=== PATIENT | male | born 1965 | race Caucasian/White ===

== ENCOUNTER 2022-11-17 06:13 | Outpatient (CLI) | payer OTHER ==
[~2022-11-17] VITALS: Ht 175.3 cm; Wt 83.0 kg
[2022-11-17] MEDS ORDERED: OMEP20CA18 PO (15:05)
[2022-11-17] MEDS ORDERED: NF-VITD400 PO (15:05)
[2022-11-17] MEDS ORDERED: ATOR40TA70 PO (15:05)
== END 2022-11-17 15:22 | disposition home or self-care (01) ==
LOC: PREOP 06:13
PROVIDERS: ATTEND Surgery
DX: Z01.818 Encounter for other preprocedural examination (principal); K40.90 Unilateral inguinal hernia, without obstruction or gangrene, not specified as recurrent

== ENCOUNTER 2022-11-24 07:38 | Day surgery (SDC) | payer OTHER ==
[2022-11-24] VITALS (11 sets, daily range): BP systolic 140–167; BP diastolic 74–94
[~2022-11-24] VITALS: Ht 175.3 cm; Wt 83.0 kg
[~2022-11-24 07:38] MED LIST: ATOR40TA70 PO; NF-VITD400 PO; OMEP20CA18 PO
[2022-11-24] MEDS: LACTATED RINGERS 1,000 ML IV PRN ×2 (08:15→09:17)
[2022-11-24] MEDS ORDERED: BUP/EPI 0.5% 1:200,000 (SENSORCAINE) 30 ML VIAL INJ ONE (08:30)
[2022-11-24] MEDS ORDERED: ceFAZolin INJECTION 2,000 MG in NS (IVPB) 50 ML IV ONE ×2 (11:15→12:30)
--- NOTE | 2022-11-24 11:43 | Progress Note-Post Operative ---
Post-Operative Progess Note Surgeon (s)/Aircraft Load Controller (s) Surgeon ALICIA JONES DO Aircraft Load Controller: Javier Pre-Operative Diagnosis RIGHT INGUINAL HERNIA Post-Operative Diagnosis Incarcerated right inguinal hernia Right cord lipoma incarcerated right femoral hernia Procedure & Operative Findings Date of Procedure 11/24/22 Procedure Performed/Findings 1) Laparoscopic Right inguinal herniarraphy with mesh placement - robotic 2) Excision of cord lipoma 3) Laparoscopic right femoral herniarraphy with mesh placement - robotic After informed consent was obtained, the patient was brought to the operating room and placed on the operating table in a supine position. He was sterilely prepped and draped in a normal fashion. Local lidocaine was used to infiltrate the skin above the umbilicus. I made an incision with #11 blade, carried down to the skin into subcutaneous tissue and then deepened down the subcutaneous tissue with Bovie electrocautery down to the fascia. Fascia was incised with Bovie electrocautery and bluntly entered the abdomen, swept a finger around, placed 0 Vicryl [id number] suture and placed limited trocar port under direct visualization. Created pneumoperitoneum, able to visualize the hernia and took a picture of this and then placed two 8 mm ports about 10 cm on either side of the midline port using a local lidocaine, 11 blade for stab incision and then advanced the robotic port under direct visualization. Once this was in, I then placed the patient in Trendelenburg and then placed the working instruments, the fenestrated bipolar and the scissors. Looked on the left side and did not see any signs of inguinal hernia. I could see a large indirect hernia defect on the right side. Next, I came across the peritoneum approximately 8 cm away from the hernia defect, going across laterally starting lateral about 17cm and cutting toward the median umbilical ligament. I then carefully dissected the visceral peritoneum away and down and then in the midline, went through the parietal side and dissected down to the pubic tubercle, dissecting this down carefully pushing the peritoneum away, I was able to then visualize the pubic tubercle and Vinny's ligament. I went 2 cm posterior and at this point, we then had a critical view of the dissection, able to dissect 2 cm across the midline to the right side, 2 cm posterior to the Vinny's ligament, able to then parietalize the vas deferens and spermatic vessels right at the groove between Vinny's and iliac vein and able to dissect, make sure there was no peritoneum between those two, able to see the indirect hernia space, took a picture of this, looked at the femoral space and found an incarcerated hernia. Started carefully removing the hernia contents and able to completely reduce. Then, I carefully teased out the hernia sac and could visualize the indirect hernia space. Next I looked on the cord and cord structures. There was a large cord lipoma that I was able to reduce and cut off. This was then removed throught the port to get it out of the peritoneal space. I could clearly see the inguinal canal and the indirect space. Next I carried the posterior lateral dissection all the way out and then placed a 10 x 16 Mid[place]ieght Bard 3DMax mesh. It laid in nicely, covered the hernia defect and the rest of the area. It was above the peritoneum, sutured it at the pubic tubercle with a 3-0 Vicryl suture and tied this off. I then tied another suture out laterally to hold the mesh down. This appeared to lay in very nicely. I then brought down the pneumoperitoneum to about 8 mmHg and then started closing the peritoneum. Started laterally and used a 2-0 V-lock barbed suture to start a running stitch to close the peritoneum. This was closed nicely, took a picture of the closure at this point, then removed both needles had switched to a suture lokie driver from the scissors. The patient was then placed back supine, removed all ports under direct visualization, allowed pneumoperitoneum to escape and then closed the supraumbilical incision, closing the fascia with 0 Vicryl suture previously placed. Copiously irrigated all incisions and then closed the two small 8 mm incisions with two interrupted 4-0 undyed Monocryl subcuticular stitches and closed the supraumbilical incision with three interrupted undyed Monocryl subcuticular stitch. Area was cleaned and dried. Dermabond was placed. The patient tolerated the procedure. The sponge, instrument and needle counts were correct at the end of the case. Dr. Herrera assisted during this surgery by making incisions, closing incisions, helping to identify anatomy and passing/retrieving suture and needles. Anesthesia Type GET Estimated Blood Loss Estimated blood loss (mL): scant Specimens/Packing Specimens Removed cord lipoma ALICIA JONES DO November 24, 2022 11:43
--- NOTE | 2022-11-24 11:45 | Discharge Inst-Surgical ---
Discharge Inst-Surgical Depart Medication/Instructions New, Converted or Re-Newed RX: Transmitted to Pharmacy Patient Instructions Follow up Appt: Make appointment for 1 week. [phone] Instructions: No lifting greater than 20 pounds. No strenuous activity. May shower in 24 hours, no tub bath or soaking. Use incentive spirometer at home as directed. No Smoking Skin/Wound Care: May remove bandages in am. You need to leave the Dermabond on incision it will fall off on it's own. Symptoms to Report: Appetite Changes, Extremity Discoloration, Numbness/Tingling, Swelling Increased, Bleeding Excessive, Eyesight Changes, Pain Increased, Urine Color Change, Constipation(Persistent), Fever over 101 degree F, Pain/Pressure in chest, Urinating Difficulty, Cough Up/Vomit Blood, Heart Beat Irreg/Pounding, Pain/Pressure in jaw, Cramps in feet or legs, Lightheadedness, Pain/Pressure in shoulder, Diarrhea(Persistent), Memory Changes Suddenly, Questions/Concerns, Weight gain consecutive days, Dizziness/Fainting, Nausea/Vomiting, Shortness of Breath, Weight gain over 2 pounds If questions or concerns contact your physician Or seek help at emergency department. Activity Activity as Tolerated: Yes Activity Instructions: Avoid Stress to Incision Driving Instructions: No Driving/Refer to Dr. Olsen Discharge Diet: No Restrictions Diet After 24 Hours: Clear Liquid if Nauseous If Any Problems/Questions/Issu: Contact Your Physician, Go to Emergency Room Skin/Wound Care Infection Signs and Symptoms: Increased Redness, Foul Odor of Wound, Increased Drainage, Skin Itchy or Has a Rash, Increased Swelling, Temperature Above 101 F Wound Care Comment: heating pad to shoulder or neck for pain tonight Bathing Instructions: Shower Stitches/[place]/Dermabond Dis: Dermabond Ice Pack: Ice On and Off Site ALICIA JONES DO November 24, 2022 11:45
--- NOTE | 2022-11-24 13:10 | Anesthesia-General Post-Op ---
General Patient Condition Mental Status/LOC: Same as Preop Cardiovascular: Satisfactory Nausea/Vomiting: Absent Respiratory: Satisfactory Pain: Controlled Complications: Absent Post Op Complications Complications None Follow Up Care/Instructions Patient Instructions None needed. Anesthesia/Patient Condition Patient Condition Patient is doing well, no complaints, stable vital signs, no apparent adverse anesthesia problems. No complications reported per nursing. D/C home per [facility] [place] Criteria: Yes LOR ROGERS CRNA November 24, 2022 13:10
--- NOTE | 2022-11-24 14:06 | Progress Note-Pre Operative ---
Pre-Operative Progress Note Date H&P Reviewed: November 24, 2022 Time H&P Reviewed: 08:27 History & Physical: H&P Reviewed, Patient Examed, No changes noted Pre-Operative Diagnosis: RIH, side marked ALICIA JONES DO November 24, 2022 14:06
== END 2022-11-24 12:45 ==
LOC: SDC 07:38
PROVIDERS: ATTEND Surgery
DX: K41.30 Unilateral femoral hernia, with obstruction, without gangrene, not specified as recurrent (principal); K40.30 Unilateral inguinal hernia, with obstruction, without gangrene, not specified as recurrent; D17.6 Benign lipomatous neoplasm of spermatic cord
CPT/HCPCS: 87081